=== PATIENT | male | born 1985 | race Two or more races ===

== ENCOUNTER 2018-05-01 20:22 | Emergency (ER) | payer SELFPAY | END 2018-05-01 21:05 | disposition home or self-care (01) | LOC: ER 20:22 | DX: R56.9 Unspecified convulsions (principal); Z76.0 Encounter for issue of repeat prescription | CPT/HCPCS: 99283 ==

== ENCOUNTER 2018-10-01 15:50 | Emergency (ER) | payer SELFPAY ==
[~2018-10-01] VITALS: Ht 167.6 cm; Wt 77.1 kg
[~2018-10-01 15:50] MED LIST: PHEN100C PO
[2018-10-01 16:25] VITALS: BP 132/74
[2018-10-01] MEDS ORDERED: PHEN100C PO (17:23)
--- NOTE | 2018-10-01 17:23 | PHYS DOC ---
Past Medical History Past Medical History: Seizure Past Surgical History: No Surgical History Alcohol Use: None Drug Use: None Adult General Chief Complaint Chief Complaint: MEDICATION REFILL HPI HPI Patient is a 33 year old male who presents to the ER with a need for a medication refill. Pt states he has been out of his dilantin for the last 2 days. He denies having any seizures since being out of his meds but states that he has a dull headache that he only gets when he has missed his medication. Pt denies any vision changes, dizziness, nausea, vomiting, or weakness. Currently his headache is a 5/10. Review of Systems Review of Systems Constitutional: Denies fever or chills [] Eyes: Denies change in visual acuity, redness, or eye pain [] Neurologic: Denies headache, focal weakness or sensory changes [] All other systems were reviewed and found to be within normal limits, except as documented in this note. Current Medications Current Medications Current Medications Medications (Trade) Dose Ordered Sig/Ge Start Time Stop Time Status Last Admin Dose Admin Phenytoin Sodium (Dilantin) 400 mg 1X ONCE 10/01/18 17:30 10/01/18 17:31 UNV Allergies Allergies Allergies Coded Allergies Type Severity Reaction Last Updated Verified No Known Drug Allergies 05/01/18 No Physical Exam Physical Exam Constitutional: Well developed, well nourished, no acute distress, non-toxic appearance. [] HENT: Normocephalic, atraumatic, bilateral external ears normal, nose normal. [] Eyes: PERRLA, conjunctiva normal, no discharge. [] Skin: Warm, dry, no erythema, no rash. [] Extremities: No cyanosis, no clubbing, ROM intact, no edema. [] Neurologic: Alert and oriented X 3, normal motor function, normal sensory function, no focal deficits noted. [] Psychologic: Affect normal, judgement normal, mood normal. [] Current Patient Data Vital Signs Vital Signs Date Time Temp Pulse Resp B/P (MAP) Pulse Ox O2 Delivery O2 Flow Rate FiO2 10/01/18 16:25 97.9 78 18 132/74 (93) 98 Room Air 97.9 EKG EKG [] Radiology/Procedures Radiology/Procedures [] Course & Med Decision Making Course & Med Decision Making Pertinent Labs and Imaging studies reviewed. (See chart for details) DX: medication refill pt was given 400 mg of dilantin PO in the ER. Prescription written for dilantin , pt instructed to fill medication and take his evening dose of medication at bedtime this evening. Return to ER if symptoms worsen. Patient verbalized an understanding of home care, medications, follow-up, and return to ED instructions and was in agreement with the plan of care. [] Dragon Disclaimer Dragon Disclaimer This electronic medical record was generated, in whole or in part, using a voice recognition dictation system. Departure Departure Impression: Primary Impression: Medicine refill Disposition: HOME, SELF-CARE Condition: STABLE Referrals: NO PCP (PCP) Patient Instructions: Medication Refill, Emergency Department Additional Instructions: Fill prescription and take as directed. Take you night time dose of medication this evening. Follow up with your primary care doctor this week. Return to ER if symptoms worsen. Scripts Phenytoin Sodium Extended (DILANTIN) 100 Mg Capsule 1 CAP PO TID for 30 Days, #90 CAP 0 Refills Prov: MICHELLE ANTON APRN 10/01/18 MICHELLE ANTON APRN Oct 01, 2018 17:23
[2018-10-01] MEDS ORDERED: PHENYTOIN SODIUM EXTENDED 100 MG CAPSULE PO ONE (18:00)
== END 2018-10-01 17:26 | disposition home or self-care (01) ==
LOC: ER 15:50
DX: R51 Headache (principal); Z76.0 Encounter for issue of repeat prescription
CPT/HCPCS: 99283

== ENCOUNTER 2019-03-14 20:33 | Emergency (ER) | payer SELFPAY ==
[~2019-03-14] VITALS: Ht 165.1 cm; Wt 77.1 kg
[2019-03-14 20:40] VITALS: BP 142/67
--- NOTE | 2019-03-14 20:48 | PHYS DOC ---
Past Medical History Past Medical History: Seizure (JOSE CHRISTIANSON) Past Surgical History: No Surgical History (JOSE CHRISTIANSON) Alcohol Use: None Drug Use: None (JOSE CHRISTIANSON) Adult General Chief Complaint Chief Complaint: MEDICATION REFILL HPI HPI Patient is a 33 year old M who presents with a known seizure disorder on phenytoin for many years who reports his last sz was around [place]. He does have a PCP who writes for his medication but due to financial hardship he can't see them at this time and he is out of his medicine since yesterday. (JOSE CHRISTIANSON) Review of Systems Review of Systems Constitutional: Denies fever or chills Respiratory: Denies cough or shortness of breath Cardiovascular: Denies chest pain GI: Denies abdominal pain, nausea, vomiting, bloody stools or diarrhea Musculoskeletal: Denies back pain or joint pain Integument: Denies rash or skin lesions Neurologic: Denies headache, focal weakness or sensory changes. Denies recent seizure activity. Endocrine: Denies polyuria or polydipsia All other systems were reviewed and found to be within normal limits, except as documented in this note. (JOSE CHRISTIANSON) Current Medications Current Medications Current Medications Medications (Trade) Dose Ordered Sig/Ge Start Time Stop Time Status Last Admin Dose Admin Phenytoin Sodium (Dilantin) 100 mg 1X ONCE 03/14/19 21:00 03/14/19 21:00 DC 03/14/19 20:57 100 MG (CHANTE SERRATO DO) Allergies Allergies Allergies Coded Allergies Type Severity Reaction Last Updated Verified No Known Drug Allergies 05/01/18 No (CHANTE SERRATO DO) Physical Exam Physical Exam Constitutional: Well developed, well nourished, no acute distress, non-toxic appearance. Neck: Normal range of motion, no tenderness, supple, no stridor. Cardiovascular:Heart rate regular rhythm, no murmur Lungs & Thorax: Bilateral breath sounds clear to auscultation Abdomen: Bowel sounds normal, soft, no tenderness, no masses, no pulsatile masses. Skin: Warm, dry, no erythema, no rash. Back: No tenderness, no CVA tenderness. Extremities: No tenderness, no cyanosis, no clubbing, ROM intact, no edema. Neurologic: Alert and oriented X 3, normal motor function, normal sensory function, no focal deficits noted. Psychologic: Affect normal, judgement normal, mood normal. (JOSE CHRISTIANSON) Current Patient Data Vital Signs Vital Signs Date Time Temp Pulse Resp B/P (MAP) Pulse Ox O2 Delivery O2 Flow Rate FiO2 03/14/19 20:40 98.1 71 16 142/67 (92) 96 Room Air 98.1 (CHANTE SERRATO DO) EKG EKG [] (JOSE CHRISTIANSON) Radiology/Procedures Radiology/Procedures [] (JOSE CHRISTIANSON) Course & Med Decision Making Course & Med Decision Making Pertinent Labs and Imaging studies reviewed. (See chart for details) Pt given a dose of phenytoin here in ER and a Rx for home. Discussed that he does need to f/u with his PCP for further prescriptions and he voices understanding. (JOSE CHRISTIANSON) Dragon Disclaimer Dragon Disclaimer This electronic medical record was generated, in whole or in part, using a voice recognition dictation system. (JOSE CHRISTIANSON) Departure Departure Impression: Primary Impression: Medicine refill Disposition: HOME, SELF-CARE Condition: STABLE Referrals: NO PCP (PCP) Patient Instructions: Liquid Medication Administration Additional Instructions: Please follow up with your primary care doctor as soon as you can to get further refills. Scripts Phenytoin Sodium Extended (DILANTIN) 100 Mg Capsule 1 CAP PO TID, #90 CAP 3 Refills Prov: JOSE CHRISTIANSON 03/14/19 Attending Signature Attending Signature I have reviewed the PA/HYDRAULIC TESTER's note and plan of care. I was available for consultation as needed during the patient's visit in the emergency department. I agree with the clinical impression, plan, and disposition. (CHANTE SERRATO DO) JOSE CHRISTIANSON Mar 14, 2019 20:48 CHANTE SERRATO DO Mar 15, 2019 05:40
[2019-03-14] MEDS ORDERED: PHEN100C PO (20:50)
[2019-03-14] MEDS ORDERED: PHENYTOIN SODIUM EXTENDED 100 MG CAPSULE PO ONE (21:00)
== END 2019-03-14 20:57 | disposition home or self-care (01) ==
LOC: ER 20:33
DX: G40.909 Epilepsy, unspecified, not intractable, without status epilepticus (principal); Z76.0 Encounter for issue of repeat prescription
CPT/HCPCS: 99283

== ENCOUNTER 2019-09-03 20:51 | Emergency (ER) | payer SELFPAY ==
[~2019-09-03] VITALS: Ht 167.6 cm; Wt 77.1 kg
[2019-09-03] MEDS ORDERED: ACET-704 PO (21:42)
[2019-09-03] MEDS ORDERED: PHEN100C PO (21:42)
[2019-09-03] MEDS ORDERED: CLIN300C8 PO (21:42)
--- NOTE | 2019-09-03 21:43 | PHYS DOC ---
Past Medical History Past Medical History: Seizure Past Surgical History: No Surgical History Alcohol Use: None Drug Use: None Adult General Chief Complaint Chief Complaint: MEDICATION REFILL HPI HPI Patient is a 34-year-old male who presents indicating that he has run out of his Dilantin and has not had a dose since yesterday. Patient states that he does not have a primary care provider and is concerned that he may have a seizure if he does not get it refilled. He also indicates that he has a bad tooth for which she is a 28 seen a dentist but they stated that he had too much swelling. Patient states that he is not on any antibiotics. He does indicate that he was given some medication for pain however. He denies any fever, chest pain or shortness of breath.[] Review of Systems Review of Systems Constitutional: Denies fever or chills [] HENT: Positive dental pain[] Respiratory: Denies cough or shortness of breath [] Cardiovascular: No additional information not addressed in HPI [] Integument: Denies rash or skin lesions [] Neurologic: Denies headache, focal weakness or sensory changes [] Allergies Allergies Allergies Coded Allergies Type Severity Reaction Last Updated Verified No Known Drug Allergies 05/01/18 No Physical Exam Physical Exam Constitutional: Well developed, well nourished, no acute distress, non-toxic appearance. [] HENT: Normocephalic, atraumatic, dentition demonstrates dental caries, with what appears to be fractured first molar in the left maxillary region with surrounding swelling. [] Neck: Normal range of motion, no tenderness, supple, no stridor. [] Cardiovascular:Heart rate regular rhythm, no murmur [] Lungs & Thorax: Bilateral breath sounds clear to auscultation [] EKG EKG [] Radiology/Procedures Radiology/Procedures [] Course & Med Decision Making Course & Med Decision Making Pertinent Labs and Imaging studies reviewed. (See chart for details) [] Dragon Disclaimer Dragon Disclaimer This electronic medical record was generated, in whole or in part, using a voice recognition dictation system. Departure Departure Impression: Primary Impression: Pain due to dental caries Additional Impression: Medicine refill Disposition: 01 HOME, SELF-CARE Condition: STABLE Referrals: NO PCP (PCP) Patient Instructions: Dental Abscess, Dental Pain, Medication Refill, Emergency Department Scripts Acetaminophen With Codeine (TYLENOL WITH CODEINE #3 TABLET) 1 Each Tablet 1 TAB PO PRN Q6HRS PRN for PAIN, #12 TAB Prov: INOCENTE VILLAREAL Jr. DO 09/03/19 Clindamycin Hcl (CLINDAMYCIN HCL) 300 Mg Capsule 1 CAP PO TID, #30 CAP Prov: INOCENTE VILLAREAL Jr. DO 09/03/19 Phenytoin Sodium Extended (DILANTIN) 100 Mg Capsule 1 CAP PO TID, #90 CAP Prov: INOCENTE VILLAREAL Jr. DO 09/03/19 Problem Qualifiers INOCENTE VILLAREAL Jr. DO Sep 03, 2019 21:43
[2019-09-03 21:55] VITALS: BP 136/78
[2019-09-03] MEDS ORDERED: PHENYTOIN SODIUM EXTENDED 100 MG CAPSULE PO ONE (22:00)
[2019-09-03] MEDS ORDERED: CLINDAMYCIN HCL 150 MG CAPSULE. PO ONE (22:00)
== END 2019-09-03 21:55 | disposition home or self-care (01) ==
LOC: ER 20:51
DX: K02.9 Dental caries, unspecified (principal); K08.89 Other specified disorders of teeth and supporting structures; Z76.0 Encounter for issue of repeat prescription
CPT/HCPCS: 99283

== ENCOUNTER 2020-05-20 21:34 | Emergency (ER) | payer SELFPAY ==
[~2020-05-20] VITALS: Ht 160 cm; Wt 77.2 kg
[~2020-05-20 21:34] MED LIST changes: +ACET-704 PO; +CLIN300C8 PO
[2020-05-20 22:09] VITALS: BP 121/69
[2020-05-20] MEDS ORDERED: PHEN200C3 PO (22:17)
--- NOTE | 2020-05-20 22:17 | PHYS DOC ---
Past Medical History Past Medical History: Seizure Past Surgical History: No Surgical History Smoking Status: Never Smoker Alcohol Use: None Drug Use: None General Adult EDM: Chief Complaint: MEDICATION REFILL HPI: HPI: Patient is a 35 year old M who is here because he ran out of his Phenytoin for his seizure disorder. His last dose was 2 days ago and he has not been able to get in to see his doctor for a refill. He denies any recent seizure activity. Review of Systems: Review of Systems: Constitutional: Denies fever or chills. Respiratory: Denies cough or shortness of breath. Cardiovascular: Denies chest pain or edema. GI: Denies abdominal pain, nausea, vomiting, bloody stools or diarrhea. : Denies dysuria. Musculoskeletal: Denies back pain or joint pain. Integument: Denies rash. Neurologic: Denies headache, focal weakness or sensory changes. Denies seizures in last 48 hours. Psychiatric: Denies depression or anxiety. Heart Score: Risk Factors: Risk Factors: DM, Current or recent (<one month) smoker, HTN, HLP, family history of CAD, obesity. Risk Scores: Score 0 - 3: 2.5% MACE over next 6 weeks - Discharge Home Score 4 - 6: 20.3% MACE over next 6 weeks - Admit for Clinical Observation Score 7 - 10: 72.7% MACE over next 6 weeks - Early Invasive Strategies Current Medications: Current Medications Medications (Trade) Dose Ordered Sig/Ge Start Time Stop Time Status Last Admin Dose Admin Phenytoin Sodium (Dilantin) 100 mg 1X ONCE 05/20/20 22:15 05/20/20 22:16 UNV Allergies: Allergies: Allergies Coded Allergies Type Severity Reaction Last Updated Verified No Known Drug Allergies 05/01/18 No Physical Exam: PE: Constitutional: Well developed, well nourished, no acute distress, non-toxic appearance. Neck: Normal range of motion, no tenderness, supple, no stridor. Cardiovascular:Heart rate regular rhythm, no murmur Lungs & Thorax: Bilateral breath sounds clear to auscultation Abdomen: Bowel sounds normal, soft, no tenderness, no masses, no pulsatile masses. Skin: Warm, dry, no erythema, no rash. Back: No tenderness, no CVA tenderness. Extremities: No tenderness, no cyanosis, no clubbing, ROM intact, no edema. Neurologic: Alert and oriented X 3, normal motor function, normal sensory function, no focal deficits noted. Psychologic: Affect normal, judgement normal, mood normal. EKG: EKG: [] Radiology/Procedures: Radiology/Procedures: [] Course & Med Decision Making: Course & Med Decision Making Pertinent Labs and Imaging studies reviewed. (See chart for details) Pt will receive refill for his seizure medicine but it is noted that pt has had this refill request at prior ER visits. Discussed with him that he needs to see his PCP for future refills as this medicine needs to often be adjusted and he needs to have basic labs done. Pt voices understanding. [employer] Disclaimer: [employer] Disclaimer: This electronic medical record was generated, in whole or in part, using a voice recognition dictation system. Departure Departure Impression: Primary Impression: Medicine refill Disposition: 01 HOME, SELF-CARE Condition: STABLE Referrals: NO PCP (PCP) Patient Instructions: Medication Refill, Emergency Department Additional Instructions: You need to find a doctor to refill your seizure medications. Scripts Phenytoin Sodium Extended (PHENYTOIN SODIUM EXTENDED) 200 Mg Capsule 100 MG PO TID for 30 Days, #90 CAP Prov: JOSE CHRISTIANSON 05/20/20 Justicifation of Admission Dx: Justifications for Admission: Justification of Admission Dx: N/A JOSE CHRISTIANSON May 20, 2020 22:17
[2020-05-20] MEDS ORDERED: PHENYTOIN SODIUM EXTENDED 100 MG CAPSULE PO ONE (22:30)
== END 2020-05-20 22:49 | disposition home or self-care (01) ==
LOC: ER 21:34
DX: G40.909 Epilepsy, unspecified, not intractable, without status epilepticus (principal); Z76.0 Encounter for issue of repeat prescription
CPT/HCPCS: 99283